=== PATIENT | female | born 1980 | race Caucasian/White ===

== ENCOUNTER 2019-12-07 11:46 | Emergency (ER) | payer OTHER, SELFPAY ==
--- NOTE | ~2019-12-07 | XR_ITS ---
XR chest 1V portable DATE: 12/07/2019 13:05 INDICATION: Cough, shortness of breath, exposure to mold and bed bound views TECHNIQUE: Portable AP chest on 12/17/2019 at 1300 hours COMPARISON: 01/22/2016 PA and lateral chest FINDINGS: Normal heart size. No hilar or mediastinal enlargement. No pulmonary infiltrate or consolid ation, pleural effusion or pulmonary vascular congestion or pneumothorax. IMPRESSION: No active cardiopulmonary disease Reviewed, dictated and finalized at location [facility]
[2019-12-07 12:20] VITALS: BP 139/99; PULSE 95; RESP 18; TEMP 37.1; O2SAT 97
--- NOTE | 2019-12-07 13:11 | ED.GENADULT ---
HPI - General Adult General Chief complaint: Skin/Abscess/Foreign Body Stated complaint: exposed to mold/bed bugs Time Seen by Provider: 12/07/19 11:57 Source: patient Mode of arrival: ambulatory Limitations: no limitations History of Present Illness HPI narrative: Patient presents with chief complaint of being exposed to mold or her wall and bedbugs in her apartment over the past month. Patient states that she smokes and has asthma and is out of her inhaler. Patient states that she has had nonproductive cough. Patient denies fever, chills, nausea, vomiting, abdominal pain, wheezing, or dyspnea. Patient denies seeing any bites from bedbugs. Patient states that she is on probation and was told by her senior major gifts officer and her newspaper vendor that she needed to have documentation of her exposure. Patient states that they have not fixed the issue, she did not pay the rent this past month and needed documentation of why. Related Data Home Medications Medication Instructions Recorded Confirmed buprenorphine-naloxone [Suboxone] 1 film [place]CCAL DAILY 12/07/19 Allergies Allergy/AdvReac Type Severity Reaction Status Date / Time No Known Allergies Allergy Unknown Verified 12/07/19 12:23 Review of Systems Review of Systems: Narrative: CONSTITUTIONAL: Denies fever, chills, or sweats. EYES: Denies visual changes, redness, or discharge. ENT: Denies rhinorrhea, congestion, sore throat, or otalgia. CARDIOVASCULAR: Denies chest pain, palpitations, or edema. RESPIRATORY: Reports cough denies dyspnea. GASTROINTESTINAL: Denies abdominal pain, nausea, vomiting, or diarrhea. GENITOURINARY: Denies dysuria or hematuria. SKIN: Denies rash or itching. MUSCULOSKELETAL: Denies back pain, joint pain, or myalgia. NEUROLOGIC: Denies headache, numbness, dizziness, or weakness. PSYCHIATRIC: Denies anxiety or depression. PMFSH Social History Social History Gender identity (if verbalized by the patient): Female Exam Narrative: Exam Narrative: GENERAL: Well-appearing, well-nourished, and in no acute distress. HEAD: Normocephalic, atraumatic. EYES: PERRLA and EOMI. ENT: Nares clear, no rhinorrhea or epistaxis. Mucous membranes moist. Oropharynx without tonsillar hypertrophy exudate or other lesions. Bilateral TMs pearly carmona nonbulging NECK: Supple. No adenopathy or masses. No carotid bruits or JVD CHEST: Clear to auscultation. No respiratory distress. No wheezes rales or rhonchi HEART: Regular rate and rhythm. No murmur heard. Normal peripheral pulses. ABDOMEN: Soft, nontender, nondistended, normal active bowel sounds. EXTREMITIES: Normal range of motion. No edema. SKIN: Warm, dry, no rash. NEURO: No focal deficits. Alert and oriented x3. PSYCH: Normal mood and affect. Course Vital Signs Vital signs: Vital Signs Temperature 98.7 F 12/07/19 12:20 Pulse Rate 95 12/07/19 12:20 Respiratory Rate 18 12/07/19 12:20 Blood Pressure 139/99 H 12/07/19 12:20 Pulse Oximetry 97 12/07/19 12:20 Temperature 98.7 F 12/07/19 12:20 Pulse Rate 95 12/07/19 12:20 Respiratory Rate 18 12/07/19 12:20 Blood Pressure 139/99 H 12/07/19 12:20 Pulse Oximetry 97 12/07/19 12:20 Medical Decision Making MDM Narrative Medical decision making narrative: Patient is not hypoxic, febrile. There are no signs of abnormalities on his x-ray. Patient does not have any active insect bites. Patient declined nebulizer treatment, denies wheezing or dyspnea at this time, and does not have any adventitious lung sounds on exam. Patient is requesting a refill of her inhaler. Patient states that she presented to the emergency department for documentation and she has been exposed to mold and bedbugs. Patient has been directed to remove herself from the environment of mold and reach out to the [employer]. Patient denies any other needs or concerns at time and is ready for discharge. Vital Signs Vital Signs: Vital Signs Temperature 98.7 F
[2019-12-07 13:25] VITALS: BP 144/92; PULSE 82; RESP 18; O2SAT 96
[2019-12-07 13:49] VITALS: BP 132/75; PULSE 72; RESP 18; O2SAT 100
== END 2019-12-07 13:50 | disposition home or self-care (01) ==
PROVIDERS: Emergency Provider Emergency Medicine; Family Provider Emergency Medicine
DX: J45.909 Unspecified asthma, uncomplicated (principal); B88.8 Other specified infestations; Z77.120 Contact with and (suspected) exposure to mold (toxic)
CPT/HCPCS: 71045; 99283